=== PATIENT | female | born 1935 | race Caucasian/White ===

== ENCOUNTER 2016-11-28 00:05 | Emergency (ER) | payer OTHER, MEDICARE ==
[~2016-11-28] VITALS: Ht 142.2 cm; Wt 48.0 kg
[2016-11-28 01:21] LABS: EOSINOPHIL (%) 2.8 % (0-5); EOSINOPHIL COUNT 0.2 K/uL (0-0.3); HEMATOCRIT 38.6 % (36.0-46.0); IMMATURE GRANULOCYTE (%) 0.7 % (0.0-0.7); IMMATURE GRANULOCYTE COUNT 0.1 K/uL; INSTRUMENT ABS NEUTROPHIL CT 4.2 K/uL; LYMPHOCYTE COUNT 1.6 K/uL (1.0-2.8); MCH 30.5 PG (29.0-34.0); MCHC 32.6 G/DL (30.0-36.0); MCV 93.5 FL (83-99); MEAN PLAT.VOLUME 11.4 uM^3 (9.5-12.4); MONOCYTE (%) 12.1 % (3-12); MONOCYTE COUNT 0.8 K/uL (0-0.8); NEUTROPHIL (%) 61.1 % (45-76); NEUTROPHIL COUNT 4.2 K/uL (1.8-6.4); PLATELET COUNT 211 K/uL (156-360); RBC DIS.WIDTH-CV 13.5 % (11.8-14.6); RBC DIS.WIDTH-SD 46.5 % (39-53); RED BLOOD COUNT 4.13 M/uL (3.80-5.20); WHITE BLOOD COUNT 6.9 K/uL (4.1-10.2)
[2016-11-28 01:28] LABS: CHLORIDE 107 mEq/L (99-109); POTASSIUM 3.9 mEq/L (3.7-5.4); SODIUM 141 mEq/L (136-147)
[2016-11-28 01:29] LABS: MAGNESIUM 2.1 mg/dL (1.3-2.7)
[2016-11-28 01:30] LABS: GLUCOSE 104 mg/dL (70-99)
[2016-11-28 01:32] LABS: ANION GAP 10 MEQ/L (2-14)
[2016-11-28 01:34] LABS: GFR ESTIMATE (CALCULATED) > 59 mL/min/
[2016-11-28 01:35] LABS: UREA NITROGEN (BUN) 17 mg/dL (9-23)
[2016-11-28 01:41] LABS: TROP-I INTERPRETATION NEGATIVE; TROPONIN-I < 0.01 ng/mL (0.0-0.30)
[2016-11-28] MEDS ORDERED: MEMANTINE HCL5 MG PO (01:44)
[2016-11-28] MEDS ORDERED: DILTIAZEM 24HR240 MG PO (01:44)
[2016-11-28] MEDS ORDERED: ATORVASTATIN CA10 MG PO (01:45)
[2016-11-28] MEDS ORDERED: ASPIR 8181 M1 PO (01:46)
[2016-11-28 02:41] VITALS: BP 120/60
== END 2016-11-28 02:48 | disposition home or self-care (01) ==
LOC: EME 00:05 → EDBD 00:05 → EME 02:48
PROVIDERS: Emergency Medicine
DX: R00.2 Palpitations (principal); F03.90 Unspecified dementia, unspecified severity, without behavioral disturbance, psychotic disturbance, mood disturbance, and anxiety
CPT/HCPCS: 71010; 80048; 83735; 83880; 84443; 84484; 85025; 93005; 99281; 99285; J3475